=== PATIENT | female | born 1955 | race Caucasian/White ===

== ENCOUNTER 2019-03-11 10:19 | Emergency (ER) | payer SELFPAY ==
[~2019-03-11] VITALS: Ht 157.5 cm; Wt 73.0 kg
[2019-03-11 10:33] VITALS: Ht 157.5 cm; Wt 73.0 kg
[2019-03-11 12:17] VITALS: BP 110/71
== END 2019-03-11 12:17 | disposition home or self-care (01) ==
LOC: ED 10:19
DX: M54.41 Lumbago with sciatica, right side (principal); I10 Essential (primary) hypertension; E11.9 Type 2 diabetes mellitus without complications
CPT/HCPCS: J1885; J2270; J2405